=== PATIENT | female | born 1975 ===

== ENCOUNTER 2025-08-03 09:33 | Day surgery (SDC) | payer OTHER ==
[2025-08-03] VITALS (42 sets, daily range): BP systolic 79–123; BP diastolic 52–80
[~2025-08-03] VITALS: Ht 170.2 cm; Wt 67.4 kg
[~2025-08-03 09:33] MED LIST: CARBATROL PO; LEVOTHYROXINE50 MC9 PO; LEVSOD75 PO; LIOT5 PO; Nortriptyline H50 MG PO; OXYC10TA19 PO; TRAZ50 PO; ZOLP10 PO
--- NOTE | 2025-08-03 09:58 | NUR ---
08/03/25 0958 Jililan Olivarez CONFIRMED AND REVIEWED H&P, MEDCICATIONS, ALLERGIES, MEDICAL HISTORY, RESPIRATORY HISTORY, VITAL SIGNS, 3-LEAD EKG, CONSENTS, AND PHYSICIAN ORDERS. PATIENT CONFIRMS NPO STATUS AND AGREES WITH SCHEDULED PROCEDURE. MONITOR INTACT WITH CONTINUOUS PULSE OXIMETRY, CAPNOGRAPHY, 3-LEAD EKG, INTERMITTENT BP. SUPPLEMENTAL O2 TO BE TITRATED THROUGHOUT PROCEDURE TO MAINTAIN O2 SATURATION ABOVE 90%. PATIENT DETERMINED TO BE ASA APPROPRIATE FOR PROPOFOL SEDATION PRIOR TO START OF PROCEDURE BY DR. LAI
--- NOTE | 2025-08-03 10:09 | NUR ---
PT AMBULATORY TO DAY SURGERY WITH STEADY GAIT. History, Chart, Medications and Allergies reviewed before start of procedure. Pre-Op teaching done. Pt verbalizes understanding. Patient States Post-Procedure ride home has been arranged WITH SPOUSE. WARM BLANKET PROVIDED.
--- NOTE | 2025-08-03 11:56 | NUR ---
Patient up to Ambulate independently. Gait steady. VSS and consistent with pt baseline. Pt hero PO fluids. Pt has no complaints and verbalizes readiness to go home. Discharge instructions reviewed with patient. Patient verbalizes understanding. Copy given to patient to take home. Patient States Post-Procedure ride home has been arranged. Discharged via wheelchair to private car for ride home. Pt belongings returned to pt.
== END 2025-08-03 11:50 | disposition home or self-care (01) ==
LOC: ORSCMMR 09:33 → ORD 10:45 → ORSCMMR 10:45
PROVIDERS: Family Medicine
PROC: 0DJD8ZZ Inspection of Lower Intestinal Tract, Via Natural or Artificial Opening Endoscopic (ICD-10-PCS; principal; 2025-08-03 10:45)
DX: Z12.11 Encounter for screening for malignant neoplasm of colon (principal); Z85.048 Personal history of other malignant neoplasm of rectum, rectosigmoid junction, and anus; Z86.0100 Personal history of colon polyps, unspecified; Z93.3 Colostomy status; E78.5 Hyperlipidemia, unspecified; E89.0 Postprocedural hypothyroidism; G47.33 Obstructive sleep apnea (adult) (pediatric); F41.9 Anxiety disorder, unspecified; Z79.899 Other long term (current) drug therapy
CPT/HCPCS: J2704; J7120